=== PATIENT | male | born 1940 | race Caucasian/White ===

== ENCOUNTER 2016-05-26 05:13 | Inpatient (IN) | payer BC, OTHER ==
[2016-04-23 15:43] VITALS: BMI 27.0
--- NOTE | 2016-04-24 12:38 | PAT Medication Instructions ---
Service Date Apr 24, 2016. Current Home Medication List Aluminum/Magnesium/Simeth (Maalox Max Susp), 30 Arformoterol Tartrate (Brovana), 1 VIAL NEB BID Aspirin (Aspirin Ec), 81 MG PO QAM Atorvastatin (Lipitor), 20 MG PO QAM Budesonide (Budesonide), 1 VIAL NEB BID Calcium Carbonate (Antacid) (Maalox), 600 MG PO Q6H PRN for Indigestion Cholecalciferol (Vitamin D), 5,000 INTER.UNIT PO QAM Diclofenac (Voltaren), 75 MG PO BID Diltiazem Hcl Extended Release (Diltiazem Hcl Er), 180 MG PO QAM Esomeprazole Magnesium (Nexium), 40 MG PO QAM Flecainide (Tambocor), 50 MG PO BID Levalbuterol Tartrate (Levalbuterol Tartrate Hfa), 2 PUFFS INH Q4H PRN for Shortness of Breath Lorazepam (Ativan), 0.5 MG PO HS Nitroglycerin (Nitrostat), 0.4 MG UT PRN PRN for Chest Pain Ocuvite Preservision (Ocuvite Preservision), 2 TAB PO QAM Woden-3 Fatty Acids (Fish Oil), 1,200 MG PO QAM Polyethylene Glycol 3350 (Miralax), 17 GM PO DAILY PRN for Constipation Psyllium (Metamucil), 1 PKT PO QAM Sildenafil Citrate (Viagra), 25 MG PO PRN Medication Instructions For Your Scheduled Surgery - Continue as directed: Nitroglycerin (Nitrostat), 0.4 MG UT PRN PRN for Chest Pain - Hold the following medications 2 weeks prior to surgery: Woden-3 Fatty Acids (Fish Oil), 1,200 MG PO QAM - Hold the following medications 7 days prior to surgery per surgeon's instructions: Diclofenac (Voltaren), 75 MG PO BID - Hold the following medications the morning of surgery: Psyllium (Metamucil), 1 PKT PO QAM Cholecalciferol (Vitamin D), 5,000 INTER.UNIT PO QAM Aluminum/Magnesium/Simeth (Maalox Max Susp), 30 Calcium Carbonate (Antacid) (Maalox), 600 MG PO Q6H PRN for Indigestion Ocuvite Preservision (Ocuvite Preservision), 2 TAB PO QAM Polyethylene Glycol 3350 (Miralax), 17 GM PO DAILY PRN for Constipation - Take the following medications the morning of surgery with a sip of water: Budesonide (Budesonide), 1 VIAL NEB BID Flecainide (Tambocor), 50 MG PO BID Aspirin (Aspirin Ec), 81 MG PO QAM Atorvastatin (Lipitor), 20 MG PO QAM Arformoterol Tartrate (Brovana), 1 VIAL NEB BID Diltiazem Hcl Extended Release (Diltiazem Hcl Er), 180 MG PO QAM Esomeprazole Magnesium (Nexium), 40 MG PO QAM Levalbuterol Tartrate (Levalbuterol Tartrate Hfa), 2 PUFFS INH Q4H PRN for Shortness of Breath (use if needed; BRING TO HOSPITAL) - Take the following medications as scheduled the night before surgery: Budesonide (Budesonide), 1 VIAL NEB BID Flecainide (Tambocor), 50 MG PO BID Arformoterol Tartrate (Brovana), 1 VIAL NEB BID Aluminum/Magnesium/Simeth (Maalox Max Susp), 30 Calcium Carbonate (Antacid) (Maalox), 600 MG PO Q6H PRN for Indigestion Lorazepam (Ativan), 0.5 MG PO HS Levalbuterol Tartrate (Levalbuterol Tartrate Hfa), 2 PUFFS INH Q4H PRN for Shortness of Breath If you have any questions please call us at [phone] (Reanna Zimmerman PA-C ) or [phone] or [phone]
[2016-04-24 13:34] LABS: BASO % 0.4 %; BASO ABS # 0.03 K/uL (0-0.2); COMPLETE YES; EOS % 4.4 %; HEMATOCRIT 40.9 % (42-52); IG% 0.1 %; LYMPH % 26.2 %; MEAN CELL VOLUME 89.9 fL (80-100); MEAN CORPUSCULAR HEMOGLOBIN 30.8 pg (25-34); MEAN CORPUSCULAR HGB CONC 34.2 g/dl (32-36); MEAN PLATELET VOLUME 10.5 fL (7.4-10.4); MONO % 8.7 %; NEUT % 60.2 %; PLATELET COUNT 231 K/uL (130-400); RED BLOOD COUNT 4.55 M/uL (4.7-6.1); WHITE BLOOD COUNT 6.88 K/uL (4.8-10.8)
[2016-04-24 13:44] LABS: URINE APPEARANCE CLEAR (CLEAR); URINE BILIRUBIN NEG (NEG); URINE COLOR YELLOW; URINE NITRITE NEG (NEG); URINE SPECIFIC GRAVITY 1.008 (1.000-1.030); UROBILINOGEN NEG (NEG); ZZUR CULT IF INDIC CLEAN CATCH NO
[2016-04-24 13:55] LABS: PARTIAL THROMBOPLASTIN RATIO 1.1; PROTHROMBIN TIME (PATIENT) 10.7 SECONDS (9.0-12.0)
[2016-04-24 14:04] LABS: MANUAL MICROSCOPIC REQUIRED? NO; REVIEW REQ? NO
[2016-04-24 14:09] LABS: BUN/CREATININE RATIO 16.1 (10-20); POTASSIUM 4.1 mmol/L (3.5-5.1)
[2016-04-24 18:09] LABS: CALCIUM 9.6 mg/dl (8.5-10.1)
--- NOTE | 2016-05-22 09:01 | HISTORY & PHYSICAL EXAMINATION ---
DATE: 05/26/2016 CHIEF COMPLAINT: Right hip pain. HISTORY OF PRESENT ILLNESS: Niranjan is a 75-year-old male with a 1-1/2 year history of pain in his right hip. The patient rates his pain a 7/10. He has pain with his daily activities. He has limited standing and walking tolerance. Pain is worse with weightbearing. The patient is using a cane. He has had injections and anti-inflammatories without relief. He has failed conservative treatment and is scheduled for right hip replacement. PAST MEDICAL HISTORY: Hypertension, hypercholesterolemia, irregular heartbeat. Denies heart disease or DVT. PAST SURGICAL HISTORY: Heart catheterization x4, colonoscopy, EGD and Mohs. SOCIAL HISTORY: The patient denies alcohol use. He quit smoking in 1969. He lives in a single story home. He is and retired. FAMILY HISTORY: Negative for DVT. MEDICATIONS: Maalox 30 mg, Brovana 1 vial nebulizer b.i.d., aspirin 81 mg daily, Lipitor 20 mg daily, budesonide 1 vial nebulizer b.i.d., antacid 600 mg q. 6 hours, vitamin D 5000 international units daily, Voltaren 75 mg b.i.d., diltiazem 180 mg daily, Nexium 40 mg daily, Tambocor 50 mg b.i.d., levalbuterol 2 puffs q. 4 hours, Ativan 0.5 mg at bedtime, nitro 0.4 mg p.r.n., Ocuvite PreserVision 2 tablets daily, omega 3 fish oil, MiraLax 17 grams daily, Metamucil 1 packet daily, Viagra 25 mg p.r.n. ALLERGIES: PULMICORT, HYDROCHLOROTHIAZIDE AND FORMOTEROL. REVIEW OF SYSTEMS: See HPI. Ten other systems reviewed, all negative. PHYSICAL EXAMINATION: VITAL SIGNS: Height 5 feet 9 inches, weight 191 pounds, BMI is 28. GENERAL: This is a well-developed, well-nourished male who is alert and oriented x3. Mood and affect are appropriate. HEENT: Normocephalic, atraumatic. Mucous membranes are moist and intact. NECK: Supple without lymphadenopathy. HEART: Regular rate and rhythm without murmurs, rubs or gallops. LUNGS: Clear to auscultation without wheezes or rhonchi. ABDOMEN: Soft and nontender. Bowel sounds are equal and active. EXTREMITIES: No ecchymosis, redness or warmth. Thigh and calf are soft and nontender. Log roll of the hip reproduces pain in the groin. He is neurovascularly intact with +5/5 strength. X-RAY EXAMINATION: AP and lateral views show joint space narrowing and osteophyte formation. IMPRESSION: Degenerative joint disease, right hip. PLAN: The patient will be admitted for a direct anterior right total hip arthroplasty. We will plan on aspirin for DVT prophylaxis. PCP is Dr. Guy Cummins of [facility]. Patient will have [facility] for home physical therapy. GINAD
[~2016-05-26] VITALS: Ht 175.3 cm; Wt 84.1 kg
[2016-05-26] VITALS (9 sets, daily range): BP systolic 103–151; BP diastolic 64–77; PULSE 64–91; TEMP 36.3–36.5; O2SAT 95–99; Ht 175.3 cm; Wt 84.1 kg
[~2016-05-26 05:13] MED LIST: ALUMSUS2; ARFO15NE NEB; ASPI81TA28 PO; ATOR-54 PO; CALC600C PO; CHOL1TAB42 PO; DICL-201 PO; DILT180C69 PO; FLEC50TA20 PO; LEVA45AE INH; LORA-741 PO; MULT-190 PO; NTRGSL/4 UT; NXM/40 PO; OMEG120013 PO; PLMINS25 NEB; POLY335019 PO; PSYL1POW4 PO; SILD1TAB11 PO
[2016-05-26] MEDS ORDERED: VANCOMYCIN INJ 400 MG in NSS 100ML IR SCH (06:00)
[2016-05-26] MEDS ORDERED: DEXAMETHASONE 4 MG TAB PO SCH (06:00)
[2016-05-26] MEDS ORDERED: CeleBREX 200 MG CAP PO SCH (06:00)
[2016-05-26] MEDS ORDERED: CEFAZOLIN 2000 MG/60 ML D5W 60 ML IV SCH (06:00)
[2016-05-26] MEDS ORDERED: POLYMYXIN B SULFATE 100,000 UNITS in NSS 100ML IR SCH (06:00)
[2016-05-26] MEDS ORDERED: GABAPENTIN 300 MG CAP PO SCH (06:00)
[2016-05-26] MEDS ORDERED: LACTATED RINGER'S 1000ML 500 ML IV ONE (06:00)
[2016-05-26] MEDS ORDERED: ACETAMINOPHEN 500 MG TAB PO SCH (06:00)
[2016-05-26] MEDS ORDERED: LACTATED RINGER'S 1000ML 1,000 ML IV SCH (06:00)
[2016-05-26] MEDS ORDERED: FAMOTIDINE 20 MG TAB PO SCH (06:00)
[2016-05-26] MEDS ORDERED: OXYCODONE HCL 10 MG TABCR (OXYCONTIN) PO SCH (06:00)
[2016-05-26] MEDS ORDERED: METOCLOPRAMIDE HCL 10 MG TAB PO SCH (06:00)
[2016-05-26] MEDS ORDERED: ROPIVACAINE 5MG/ML 30 ML 150 MG, BUPIVACAINE/EPINEPHR 0.5% MPF 30 ML, KETOROLAC TROMETH... INFIL SCH ×7 (06:00)
[2016-05-26] MEDS ORDERED: OLME40TA30 PO (06:20)
[2016-05-26] MEDS ORDERED: SYMIN160 INH (06:22)
[2016-05-26] MEDS: TRANEXAMIC ACID INJ 1,000 MG in SODIUM CHLORIDE 0.9% 100ML 100 ML IV SCH ×2 (06:30→06:31)
[2016-05-26] MEDS ORDERED: BUPIVACAINE 0.5 % 5 MG/1 ML PF 10ML VIAL ONE (06:32)
[2016-05-26] MEDS ORDERED: FENTANYL CITRATE INJ 50 MCG/1 ML 2 ML VIAL ONE (06:42)
[2016-05-26] MEDS ORDERED: MIDAZOLAM HCL 1 MG/ML 2ML VIAL ONE (06:42)
[2016-05-26] MEDS ORDERED: LIDOCAINE HCL 2% 2 ML VIAL (20MG/ML) ONE (06:43)
[2016-05-26] MEDS ORDERED: PROPOFOL IV EMULSION 10 MG/ML 20 ML VIAL IV ONE ×2 (06:43→08:47)
[2016-05-26] MEDS ORDERED: ORTHO JOINT ANESTHETIC ONE (06:52)
--- NOTE | 2016-05-26 06:57 | History & Physical Bridge Note ---
H&P Re-Evaluation Bridge Note: I have examined the patient, reviewed the History & Physical and in the interval since the performance of the History & Physical I have noted the following changes of clinical significance: No changes noted
[2016-05-26] MEDS ORDERED: ONDANSETRON INJ 2 MG/ML 2 ML VIAL IV PRN ×2 (07:30→08:45)
[2016-05-26] MEDS ORDERED: ATROPINE SULFATE 0.1 MG/ML 5ML SYR IV PRN (07:30)
[2016-05-26] MEDS ORDERED: PHENYLEPHRINE 100MCG/ML 5ML SYR IV PRN (07:30)
[2016-05-26] MEDS ORDERED: KETOROLAC TROMETHAMINE 30 MG/ML VIAL IV. PRN (07:30)
[2016-05-26] MEDS ORDERED: HYDROmorphone INJ 2 MG/ML SYR/VIAL IV PRN (07:30)
[2016-05-26] MEDS ORDERED: EpHEDrine SULFATE 50MG/5ML SYR ONE (07:42)
[2016-05-26] MEDS ORDERED: PHENYLEPHRINE 100MCG/ML 5ML SYR ONE (07:42)
[2016-05-26] MEDS ORDERED: BACITRACIN 50000 UNIT VIAL IR ONE (08:35)
[2016-05-26] MEDS ORDERED: POVIDONE-IODINE OP SOLN 30 ML BTL TOP ONE (08:35)
--- NOTE | 2016-05-26 08:42 | [facility] Post Operative Brief Note ---
Immediate Operative Summary Operative Date May 26, 2016. Pre-Operative Diagnosis Right Hip Degenerative Joint Disease Post-Operative Diagnosis Right Hip Degenerative Joint Disease Procedure(s) Performed Right Total Hip Arthroplasty,Direct Anterior Approach Surgeon Dr. Travis Hernandez Faculty Research Assistant Surgeon(s) Breann Rodrigues PA-C Estimated Blood Loss 75ML Findings djd Specimens A. Right femoral head Complication(s) None Disposition Recovery Room / PACU
[2016-05-26] MEDS ORDERED: SOD PHOSPHATE/SOD BIPHOSPHATE ENEMA 132 ML BTL PR PRN (08:45)
[2016-05-26] MEDS ORDERED: MoRPHine SULFATE 2 MG/ML CARP IV PRN (08:45)
[2016-05-26] MEDS ORDERED: MAGNESIUM HYDROXIDE SUSP 30 ML UDC PO PRN (08:45)
[2016-05-26] MEDS ORDERED: ALUMINUM/MAGNESIUM/SIMETH (MAALOX MAX) 30 ML UDC PO PRN (08:45)
[2016-05-26] MEDS ORDERED: TRAMADOL HCL 50 MG TAB PO PRN (08:45)
[2016-05-26] MEDS ORDERED: NITROGLYCERIN 0.4 MG SL PER TAB CHARGE UT PRN (08:45)
[2016-05-26] MEDS ORDERED: DiphenhydrAMINE HCL 50 MG/ML VIAL IV PRN (08:45)
[2016-05-26] MEDS ORDERED: BISACODYL 10 MG SUPP PR PRN (08:45)
[2016-05-26] MEDS ORDERED: OXYCODONE HCL IR 5 MG TAB (IMMEDIATE RELEASE) PO PRN (08:45)
[2016-05-26] MEDS ORDERED: METOCLOPRAMIDE HCL INJ 5 MG/ML 2 ML VIAL IV PRN (08:45)
[2016-05-26] MEDS ORDERED: ZOLPIDEM TARTRATE 5 MG TAB PO PRN (08:45)
[2016-05-26] MEDS ORDERED: PHENYLEPHRINE HCL INJ 10 MG/ML VIAL ONE (08:47)
[2016-05-26] MEDS: CEROVITE ADV FORMULA TAB PO SCH (09:00)
[2016-05-26] MEDS: EpHEDrine SULFATE INJ 50 MG/ML AMP IV PRN (09:19)
--- NOTE | 2016-05-26 09:33 | DIAGNOSTIC IMAGING REPORT ---
RIGHT PELVIS/UNILATERAL HIP 1 VIEW CLINICAL HISTORY: Right hip arthritis. Arthroplasty. COMPARISON: None FINDINGS: Alignment of the total right hip arthroplasty is anatomic. There is no fracture or unexpected radiopaque foreign body. A drain is in place. There is an acetabular screw. IMPRESSION: Expected findings following total right hip arthroplasty. Electronically signed by: Andre Pickard M.D. 05/26/2016 9:31 AM Dictated Date/Time: 05/26/2016 9:30 AM
--- NOTE | 2016-05-26 09:47 | DIAGNOSTIC IMAGING REPORT ---
INTRAOPERATIVE RIGHT HIP SINGLE VIEW CLINICAL HISTORY: Right hip arthroplasty COMPARISON STUDY: No previous studies for comparison. FINDINGS: 17 seconds of fluoroscopic time was utilized. A single intraoperative view of the hip is provided for interpretation. This reveals postsurgical changes of a total right hip arthroplasty. No dislocation is evident. IMPRESSION: Intraoperative radiograph demonstrating a total right hip arthroplasty Electronically signed by: Tyson Masterson M.D. 05/26/2016 9:45 AM Dictated Date/Time: 05/26/2016 9:44 AM
--- NOTE | 2016-05-26 11:13 | Anesthesiology Progress Note ---
Anesthesia Post Op Note Date & Time May 26, 2016 at 11:13 Vital Signs Pain Intensity: 0.0 Vital Signs Past 12 Hours Date Time Temp Pulse Resp B/P Pulse Ox O2 Delivery O2 Flow Rate FiO2 05/26/16 10:45 36.3 64 16 115/77 97 Nasal Cannula 2.0 05/26/16 10:15 97 Nasal Cannula 2.0 05/26/16 10:15 97 Nasal Cannula 2.0 05/26/16 10:15 36.4 64 16 107/68 97 Nasal Cannula 2.0 05/26/16 10:00 113/55 05/26/16 09:56 58 15 99 05/26/16 09:56 59 15 05/26/16 09:56 59 15 05/26/16 09:56 58 15 99 05/26/16 09:53 90/58 05/26/16 09:53 90/58 05/26/16 09:51 64 20 100/64 98 05/26/16 09:51 64 20 100/64 98 05/26/16 09:51 62 20 05/26/16 09:51 62 20 05/26/16 09:48 86/70 05/26/16 09:48 86/70 05/26/16 09:46 57 14 98 05/26/16 09:46 57 14 98 05/26/16 09:46 58 14 05/26/16 09:46 58 14 05/26/16 09:43 94/64 05/26/16 09:43 94/64 05/26/16 09:41 55 11 05/26/16 09:41 55 11 98 05/26/16 09:41 55 11 98 05/26/16 09:41 55 11 05/26/16 09:40 57 13 98 05/26/16 09:40 36.8 57 13 05/26/16 09:38 101/56 05/26/16 09:35 56 15 99 05/26/16 09:35 57 15 05/26/16 09:33 103/56 05/26/16 09:30 59 11 99 05/26/16 09:30 59 11 05/26/16 09:28 104/61 05/26/16 09:25 62 11 05/26/16 09:25 62 11 100 05/26/16 09:23 96/62 05/26/16 09:20 Nasal Cannula 3 05/26/16 09:20 63 18 100 05/26/16 09:20 61 18 05/26/16 09:18 110/64 05/26/16 09:15 61 17 100 05/26/16 09:15 62 17 05/26/16 09:13 87/56 05/26/16 09:10 61 14 05/26/16 09:10 62 14 100 05/26/16 09:08 87/57 05/26/16 09:05 65 16 98 05/26/16 09:05 64 16 05/26/16 09:04 98/54 05/26/16 09:03 99/47 05/26/16 09:00 36.4 66 16 99/47 100 Mask 10 05/26/16 05:40 36.4 76 18 151/76 95 Room Air Notes Mental Status: alert / awake / arousable, participated in evaluation Pt Amnestic to Procedure: Yes Nausea / Vomiting: adequately controlled Pain: adequately controlled Airway Patency, RR, SpO2: stable & adequate BP & HR: stable & adequate Hydration State: stable & adequate Anesthetic Complications: no major complications apparent
[2016-05-26] MEDS: D5W AND 1/2NSS + 20MEQ KCL 1,000 ML IV SCH ×2 (11:30→21:12)
[2016-05-26] MEDS: KETOROLAC TROMETHAMINE 15 MG/ML VIAL IV. SCH ×3 (12:41→23:38)
[2016-05-26] MEDS: ACETAMINOPHEN 500 MG TAB PO SCH ×2 (13:25→22:16)
[2016-05-26] MEDS: CEFAZOLIN IV 2,000 MG in DEXTROSE 5% 50ML 50 ML IV SCH ×2 (13:26→22:16)
[2016-05-26] MEDS ORDERED: TRANEXAMIC ACID INJ 1,000 MG in SODIUM CHLORIDE 0.9% 100ML 100 ML IV ONE (15:00)
--- NOTE | 2016-05-26 18:00 | OPERATIVE REPORT ---
DATE OF OPERATION: 05/26/2016 PREOPERATIVE DIAGNOSIS: Degenerative arthritis, right hip. POSTOPERATIVE DIAGNOSIS: Same. PROCEDURE: Right total hip replacement. SURGEON: Travis Hernandez MD BLOWER OPERATOR: BETO eMndoza ANESTHESIA: Spinal. BLOOD LOSS: 75 mL. REPLACEMENT FLUIDS: 1800 mL of crystalloid. DRAINS: Hemovacs x1. CULTURES: None. COMPLICATIONS: None. COMPONENTS USED: [employer] hip system: Acetabulum size 54, femur size 6 standard offset, femoral head +4, 36 mm. NOTE: BETO Mendoza was present and assisted throughout due to the complicated nature of this case. She helped with preparation and set up. She first assisted throughout and personally closed the fascial, subcutaneous and skin layers and applied the postoperative dressing. DESCRIPTION OF PROCEDURE: Following satisfactory spinal, the patient was supine. The right leg was placed in the traction device and the left leg in the well leg hernández. The right leg was prepared with ChloraPrep and draped sterilely. Following a surgical time-out, an anterior approach in the interval between the sartorius and tensor muscles was completed, the circumflex femoral vessels were identified and ligated, and an anterior capsulotomy was performed. The arthritic femoral neck and head were then trimmed and removed. The acetabular self-retraining retractor was placed, acetabular reaming with fluoroscopic guidance was completed and a 54 shell was impacted into an anatomic position and secured with a dome screw. Local anesthetic was placed and after irrigation, the poly liner was placed. The femur was then placed into position of external rotation, extension and adduction. Femoral canal was identified and prepared up to the size 6. A trial reduction with the +4 head showed catholic of leg lengths using fluoroscopic anatomic landmarks and good fit and fill of the proximal canal. The hip was dislocated. The trial component removed. After local anesthetic and irrigation, the final implant was placed, the hip was reduced. A Betadine soak was performed. The muscles were infiltrated with local anesthetic. After 5 minutes, the Betadine was irrigated. The capsule was closed with 1-0 Vicryl interrupted. A drain was placed deep. The muscle fascia was closed with a running suture of 1 Vicryl. The subcutaneous tissues with 2-0 Vicryl. The skin with a running subcuticular stitch of 3-0 V-Loc. Dermabond and a dry dressing were applied. The patient was returned to his bed in stable condition. I attest to the content of the Intraoperative Record and any orders documented therein. Any exceptio ns are noted below.
[2016-05-26] MEDS ORDERED: SENNA 8.6 MG TAB PO SCH (21:00)
[2016-05-26] MEDS ORDERED: LORAZEPAM 0.5 MG TAB PO SCH (21:00)
[2016-05-26] MEDS: ASPIRIN 81 MG ECTAB PO SCH (21:12)
[2016-05-26] MEDS: BUDESONIDE/FORMOTEROL FUMARATE 160/4.5 60 PUFFS/INHALER INH SCH (21:12)
[2016-05-26] MEDS: FLECAINIDE ACETATE 100 MG TAB PO SCH (21:14)
[2016-05-26] MEDS ORDERED: SODIUM CHLORIDE 0.65% NA SOLN 45 ML (OCEAN) PRN (22:30)
[2016-05-26] MEDS ORDERED: NURSING DECISION MEDICATION ORDER SCH (22:30)
[2016-05-27 03:40] VITALS: BP 120/69; PULSE 83; TEMP 36.6; O2SAT 95
[2016-05-27] MEDS: ACETAMINOPHEN 500 MG TAB PO SCH (05:46)
[2016-05-27] MEDS: KETOROLAC TROMETHAMINE 15 MG/ML VIAL IV. SCH ×2 (05:47→11:03)
[2016-05-27 06:21] LABS: COMPLETE YES; IG% 0.2 %; LYMPH % 5.2 %; LYMPH ABS # 0.88 K/uL (1.2-3.4); MEAN CELL VOLUME 89.1 fL (80-100); MEAN CORPUSCULAR HEMOGLOBIN 30.5 pg (25-34); MEAN CORPUSCULAR HGB CONC 34.2 g/dl (32-36); MONO % 6.9 %; NEUT % 87.7 %; PLATELET COUNT 209 K/uL (130-400); RED BLOOD COUNT 3.48 M/uL (4.7-6.1); WHITE BLOOD COUNT 16.77 K/uL (4.8-10.8)
[2016-05-27 07:01] LABS: BUN/CREATININE RATIO 14.4 (10-20); CALCIUM 8.4 mg/dl (8.5-10.1); CREATININE 1.2 mg/dl (0.60-1.40); POTASSIUM 4.6 mmol/L (3.5-5.1)
[2016-05-27 07:25] VITALS: BP 127/73; PULSE 85; TEMP 36.7; O2SAT 97
[2016-05-27] MEDS: D5W AND 1/2NSS + 20MEQ KCL 1,000 ML IV SCH (07:27)
--- NOTE | 2016-05-27 07:49 | Discharge Instructions ---
Discharge Instructions Admission Reason for Admission: Right Hip Degenerative Arthritis Discharge Discharge Diagnosis / Problem: sp right CARY, direct anterior Discharge Goals Goal(s): Decrease discomfort, Improve function, Increase independence Activity Recommendations Activity Limitations: per Instructions/Follow-up section . Instructions / Follow-Up Instructions / Follow-Up ACTIVITY RECOMMENDATIONS: SELF CARE INSTRUCTIONS AFTER TOTAL HIP REPLACEMENT : Direct Anterior Approach Until the incision and soft tissues around your hip have healed, there is a possibility that the hip prosthesis could dislocate. A. Hip flexion ( Up & Down out of chair or steps ) may be difficult. This is normal. B. Numbness in front of the thigh is also normal for a few weeks. C. Use hand rails when walking on stairs. D. Wear low heeled shoes with non-slip soles. E. Be sure that your floors are free of things that could trip you - throw rugs , electrical cords, small objects. Avoid wet and waxed floors, especially with crutches and canes. F. Try to walk several times a day with rest periods between. G. Continue with all the exercises taught to you in the hospital. Again, make walking a part of your daily routine. SPECIAL CARE INSTRUCTIONS: VERY IMPORTANT TO READ AND REVIEW A. You may still be at risk for phlebitis and blood clots. 1. Wear surgical stockings (SANIYA hose) for 2 weeks after surgery to improve circulation and reduce swelling. 2. Take Aspirin 81mg twice daily for 4 weeks or as directed by your doctor. This is your blood thinner. 3. High risk patients may be prescribed a stronger blood thinner if necessary. 4. If you are on Coumadin normally, your family doctor/solutions developer should monitor your blood work. Expect a phone call the day of or the day after bloodwork is drawn to adjust your dosage. B. You must take antibiotics before having dental work, bladder, bowel and other surgery. Your doctor will provide you with a permanent card to carry describing precautions. C. Call [facility] if you have a fever, redness or swelling around the incision, cloudy drainage from incision, or sudden increase in pain in your hip, not relieved by your regular pain medication. D. Please call the office at if you have any concerns or questions about your operation or recovery. * YOU MAY SHOWER, NO TUB BATHS UNTIL CLEARED BY YOUR DOCTOR. - Keep an extra close eye on the top portion of your incision. Be sure to keep clean & dry. * WEAR SANIYA HOSE 20 HOURS PER DAY FOR 2 WEEKS. * YOU MAY PROGRESS FROM A WALKER, TO A CANE, TO INDEPENDENT AT YOUR OWN PACE. * MOST PATIENTS WILL HAVE HOME NURSING FOR THERAPY. IF YOU DECIDE TO DO OUTPATIENT PHYSICAL THERAPY, PLEASE SCHEDULE THIS 3 TIMES PER WEEK. * DERMABOND Prineo- This is a mesh tape dressing that is covered with glue. It should remain in place until the incision is properly healed, usually 10-14 days. This dressing is designed to naturally slough off. You may trim the excess mesh tape as it peels off. Incision may be briefly wet in a shower. Dry immediately by blotting with a clean, dry towel. Do not bath or swim until instructed by your doctor. Do not scratch, rub, or pick at the dressing. Do not apply any topical ointments or lotions until dressing is completely removed and/or instructed by your doctor. There may be a small piece of suture material at one end of your incision. Do not pull or trim this. If it is bothersome or catching on clothing, you may cover it with a band-aid. FOLLOW UP VISIT: If appointment is not already scheduled: Please call [facility] to make a follow-up appointment for 2 weeks after your surgery at . Current Hospital Diet Patient's current hospital diet: Regular Diet Discharge Diet Recommended Diet: Regular Diet Procedures Procedures Performed: Right Total Hip Arthroplasty,Direct Anterior Approach Pending Studies Studies pending at discharge: no Medical Emergencies . Who to Call and When: Medical Emergencies: If at any time you feel your situation is an emergency, please call 911 immediately. . Non-Emergent Contact Non-Emergency issues call your: Primary Care Provider . "Provider Documentation" section prepared by Breann Rodrigues. VTE Core Measure Inpt VTE Proph given/why not?: Other Anticoagulation, T.E.D. Stockings, SCD's
--- NOTE | 2016-05-27 07:50 | Orthopedic Progress Note ---
Orthopedic Progress Note Date of Service May 27, 2016. Subjective Post OP Day: 1 Reports: feeling well, pain controlled w PO medications, Denies: SOB, chest pain , complaints Objective calves soft nontender, N/V intact, hip located, dressing C/D/I, A&O x3, toes mobile Date Time Temp Pulse Resp B/P Pulse Ox O2 Delivery O2 Flow Rate FiO2 05/27/16 07:25 36.7 85 19 127/73 97 Room Air 05/27/16 03:40 36.6 83 16 120/69 95 Room Air 05/26/16 23:05 36.5 89 16 118/70 96 Room Air 05/26/16 19:50 Room Air 05/26/16 19:48 36.4 91 18 118/68 95 Room Air 05/26/16 15:04 36.4 82 18 112/64 95 Room Air 05/26/16 13:15 74 16 114/68 98 2.0 05/26/16 12:11 36.5 65 16 103/68 99 2.0 05/26/16 11:19 36.4 67 16 110/71 99 2.0 05/26/16 10:45 36.3 64 16 115/77 97 Nasal Cannula 2.0 05/26/16 10:15 97 Nasal Cannula 2.0 05/26/16 10:15 97 Nasal Cannula 2.0 05/26/16 10:15 36.4 64 16 107/68 97 Nasal Cannula 2.0 05/26/16 10:00 113/55 05/26/16 09:56 58 15 99 05/26/16 09:56 59 15 05/26/16 09:56 59 15 05/26/16 09:56 58 15 99 05/26/16 09:53 90/58 05/26/16 09:53 90/58 05/26/16 09:51 64 20 100/64 98 05/26/16 09:51 64 20 100/64 98 05/26/16 09:51 62 20 05/26/16 09:51 62 20 05/26/16 09:48 86/70 05/26/16 09:48 86/70 05/26/16 09:46 57 14 98 05/26/16 09:46 57 14 98 05/26/16 09:46 58 14 05/26/16 09:46 58 14 05/26/16 09:43 94/64 05/26/16 09:43 94/64 05/26/16 09:41 55 11 05/26/16 09:41 55 11 98 05/26/16 09:41 55 11 98 05/26/16 09:41 55 11 05/26/16 09:40 57 13 98 05/26/16 09:40 36.8 57 13 05/26/16 09:38 101/56 05/26/16 09:35 56 15 99 05/26/16 09:35 57 15 05/26/16 09:33 103/56 05/26/16 09:30 59 11 99 05/26/16 09:30 59 11 05/26/16 09:28 104/61 05/26/16 09:25 62 11 05/26/16 09:25 62 11 100 05/26/16 09:23 96/62 05/26/16 09:20 Nasal Cannula 3 05/26/16 09:20 63 18 100 05/26/16 09:20 61 18 05/26/16 09:18 110/64 05/26/16 09:15 61 17 100 05/26/16 09:15 62 17 05/26/16 09:13 87/56 05/26/16 09:10 61 14 05/26/16 09:10 62 14 100 05/26/16 09:08 87/57 05/26/16 09:05 65 16 98 05/26/16 09:05 64 16 05/26/16 09:04 98/54 05/26/16 09:03 99/47 05/26/16 09:00 36.4 66 16 99/47 100 Mask 10 Laboratory Results 24 Hours: Test 05/27/16 05:56 White Blood Count 16.77 K/uL Red Blood Count 3.48 M/uL Hemoglobin 10.6 g/dL Hematocrit 31.0 % Mean Corpuscular Volume 89.1 fL Mean Corpuscular Hemoglobin 30.5 pg Mean Corpuscular Hemoglobin Concent 34.2 g/dl Platelet Count 209 K/uL Mean Platelet Volume 10.0 fL Neutrophils (%) (Auto) 87.7 % Lymphocytes (%) (Auto) 5.2 % Monocytes (%) (Auto) 6.9 % Eosinophils (%) (Auto) 0.0 % Basophils (%) (Auto) 0.0 % Neutrophils # (Auto) 14.70 K/uL Lymphocytes # (Auto) 0.88 K/uL Monocytes # (Auto) 1.15 K/uL Eosinophils # (Auto) 0.00 K/uL Basophils # (Auto) 0.00 K/uL Assessment & Plan Assessment: POD 1 CARY Plan: HOME TODAY W HOME HEALTH ADVANTAGE Inhouse Planning Pain Management: Celebrex, PO Tylenol, Oxy IR DVT Prophylaxis: TEDs, SCDs, ASA Discharge Planning Discharge Planning: home with home health Pain Management: Celebrex, PO Tylenol, Oxy IR DVT Prophylaxis: TEDs, ASA Therapy: Physical Therapy
[2016-05-27] MEDS ORDERED: SNK PO (07:51)
[2016-05-27] MEDS ORDERED: ONDA8TAB6 PO (07:51)
[2016-05-27] MEDS ORDERED: ACET-1138 PO (07:51)
[2016-05-27] MEDS ORDERED: CLB200 PO (07:51)
[2016-05-27] MEDS ORDERED: RXC5 PO (07:51)
[2016-05-27] MEDS ORDERED: ASPI81TA28 PO (07:51)
[2016-05-27] MEDS: BUDESONIDE/FORMOTEROL FUMARATE 160/4.5 60 PUFFS/INHALER INH SCH (08:47)
[2016-05-27] MEDS: ASPIRIN 81 MG ECTAB PO SCH (08:50)
[2016-05-27] MEDS: CEROVITE ADV FORMULA TAB PO SCH (08:50)
[2016-05-27] MEDS: FLECAINIDE ACETATE 100 MG TAB PO SCH (08:51)
[2016-05-27] MEDS ORDERED: HYDROCHLOROTHIAZIDE 25 MG TAB PO SCH (09:00)
[2016-05-27] MEDS ORDERED: PANTOprazole SOD 40 MG TAB PO SCH (09:00)
[2016-05-27] MEDS ORDERED: OLMESARTAN MEDOXOMIL 40 MG TAB PO SCH (09:00)
[2016-05-27] MEDS ORDERED: PSYLLIUM 58.6% PWD PACK S\\F PO SCH (09:00)
[2016-05-27] MEDS ORDERED: CHOLECALCIFEROL 1000 INTER.UNIT TAB PO SCH (09:00)
[2016-05-27] MEDS ORDERED: ATORVASTATIN 20 MG TAB PO SCH (09:00)
[2016-05-27] MEDS ORDERED: MULTIVITAMIN TAB PO SCH (09:00)
[2016-05-27] MEDS ORDERED: DILTIAZEM HCL (TIAzac) 180 MG CAPCR PO SCH (09:00)
--- NOTE | 2016-05-27 10:01 | Anesthesiology Progress Note ---
Anesthesia Post Op Note Date & Time May 27, 2016 at 09:59 Vital Signs Pain Intensity: 0.0 Vital Signs Past 12 Hours Date Time Temp Pulse Resp B/P Pulse Ox O2 Delivery O2 Flow Rate FiO2 05/27/16 08:24 Room Air 05/27/16 07:25 36.7 85 19 127/73 97 Room Air 05/27/16 03:40 36.6 83 16 120/69 95 Room Air 05/26/16 23:05 36.5 89 16 118/70 96 Room Air Notes Mental Status: alert / awake / arousable, participated in evaluation Pt Amnestic to Procedure: Yes Nausea / Vomiting: adequately controlled Pain: adequately controlled Airway Patency, RR, SpO2: stable & adequate BP & HR: stable & adequate Hydration State: stable & adequate Neuraxial Anesthesia: sensory block resolved Anesthetic Complications: no major complications apparent
[2016-05-27 10:45] VITALS: BP 127/73; PULSE 85; TEMP 36.7; O2SAT 97
[2016-05-27 11:17] VITALS: BP 129/72; PULSE 88; TEMP 36.6; O2SAT 97
[2016-05-27 12:28] VITALS: BP 129/72; PULSE 88; TEMP 36.6; O2SAT 97
[2016-05-28] MEDS ORDERED: CeleBREX 200 MG CAP PO SCH (21:00)
--- NOTE | 2016-06-02 10:10 | DISCHARGE SUMMARY ---
DISCHARGE DIAGNOSIS: Degenerative joint disease, right hip. SECONDARY DIAGNOSIS: Chronic obstructive pulmonary disease. CONSULTS: None. COMPLICATIONS: None. PROCEDURE: The patient underwent a direct anterior right total hip arthroplasty with Dr. Hernandez on 05/26/2016. BRIEF HISTORY: Please see previously dictated history and physical. HOSPITAL SUMMARY: The patient was admitted on the above day for the above procedure. Procedure went without complication. Postop day 1, the patient was feeling well without complaints. He denied chest pain or shortness of breath. Vital signs were stable. He was afebrile. Dressing was clean, dry and intact. He was neurovascularly intact. Calves were soft and nontender. The patient began physical therapy per protocol. He was discharged to home later that day in stable condition. For further review please see the chart. Lab, x-ray data and discharge instructions as per chart.
== END 2016-05-27 13:35 | disposition home health service (06) | DRG 470 ==
LOC: ENRESERVDT → ENRESERVTM → C.ACU 05:13 → C.3E 06:30
PROVIDERS: ADMIT Orthopaedic Surgery; ATTEND Orthopaedic Surgery
PROC: 0SR904Z Replacement of Right Hip Joint with Ceramic on Polyethylene Synthetic Substitute, Open Approach (ICD-10-PCS; principal; 2016-05-26 07:15)
DX: M16.11 Unilateral primary osteoarthritis, right hip (principal); I10 Essential (primary) hypertension; E78.00 Pure hypercholesterolemia, unspecified; R00.8 Other abnormalities of heart beat; J45.909 Unspecified asthma, uncomplicated; J44.9 Chronic obstructive pulmonary disease, unspecified; K21.9 Gastro-esophageal reflux disease without esophagitis; N40.0 Benign prostatic hyperplasia without lower urinary tract symptoms; I25.10 Atherosclerotic heart disease of native coronary artery without angina pectoris; M54.12 Radiculopathy, cervical region; Z87.891 Personal history of nicotine dependence; Z95.5 Presence of coronary angioplasty implant and graft; Z79.1 Long term (current) use of non-steroidal anti-inflammatories (NSAID); Z79.51 Long term (current) use of inhaled steroids; Z79.82 Long term (current) use of aspirin; Z79.899 Other long term (current) drug therapy